=== PATIENT | female | born 1960 ===

== ENCOUNTER 2016-10-21 16:49 | Emergency (ER) | payer OTHER ==
[2016-10-21 16:57] VITALS: O2SAT 96
[2016-10-21] MEDS ORDERED: Albuterol-Ipratrop 3 mg / 0.5 (3 ml) UD ONE ×2 (17:00→17:29)
[2016-10-21] MEDS ORDERED: Albuterol-Ipratrop 3 mg / 0.5 (3 ml) UD INH STA ×3 (17:09→17:10)
--- NOTE | 2016-10-21 17:15 | C.PDOC ---
History Of Present Illness 56 y/o female with Hx of Asthma presents to ED with complaints of sob, mild cough and wheezing for 1 week. Patient reports increased use of nebulizer. Patient states she has never been hospitalized or intubated for similar symptoms before. No other complaints at this time. Time Seen by Provider: 10/21/16 16:59 Chief Complaint (Nursing): Shortness Of Breath History Per: Patient History/Exam Limitations: no limitations Onset/Duration Of Symptoms: Days Current Symptoms Are (Timing): Still Present Initiating Event: Upper Respiratory Illness Past Medical History Reviewed: Historical Data, Nursing Documentation, Vital Signs Vital Signs: Last Vital Signs Temp 97.8 F 10/21/16 18:45 Pulse 98 H 10/21/16 18:45 Resp 18 10/21/16 18:45 BP 108/69 10/21/16 18:45 Pulse Ox 96 10/21/16 18:45 - Medical History PMH: Asthma Surgical History: No Surg Hx Family History: States: No Known Family Hx - Social History Hx Alcohol Use: No Hx Substance Use: No - Immunization History Hx Tetanus Toxoid Vaccination: No Hx Influenza Vaccination: No Hx Pneumococcal Vaccination: No Review Of Systems Except As Marked, All Systems Reviewed And Found Negative. Respiratory: Positive for: Cough, Shortness of Breath Physical Exam - Physical Exam Appears: Non-toxic, No Acute Distress Skin: Normal Color, Warm, Dry, No Rash Head: Atraumatic, Normacephalic Eye(s): bilateral: Normal Inspection Oral Mucosa: Moist Throat: Normal, No Erythema Neck: Normal ROM, Supple Chest: Symmetrical Cardiovascular: Rhythm Regular, No Murmur Respiratory: No Rales, No Rhonchi, Wheezing (Bilateral) Gastrointestinal/Abdominal: Soft, No Tenderness, No Guarding, No Rebound Neurological/Psych: Oriented x3, Normal Speech ED Course And Treatment O2 Sat by Pulse Oximetry: 96 (RA) Pulse Ox Interpretation: Normal Medical Decision Making Medical Decision Making: asthma exacerbation - mild. pt speaking full sentences, no increased wob. mild wheezing b/l . no accessory muscle use- cxr, nebs steriods reassess 5.30: pt reasseseD: wheezing improved, cxr neg. willcontinue to reassess 615: pt reasseseD: pt reports symptoms improving. wheezing nearly resolved. minimal scattered 630: pt reassesed: wheezing resolved, peak flow improving. requested pt to be futher obs in er, declines, states she wishes to go home right now. return precations advised. Disposition - Disposition Referrals: [facility] [Outside] [facility] [Outside] [facility] [Outside] Disposition: HOME/ ROUTINE Disposition Time: 07:00 Condition: STABLE Additional Instructions: please follow up with your doctor. return to er with worsening symptoms or concerns Prescriptions: Albuterol 0.083% [Albuterol 0.083% Inhal Delilah (2.5 mg/3 ml) UD] 2.5 mg IH Q4 PRN #20 neb PRN Reason: Wheezing Prednisone 50 mg PO DAILY #5 tablet Instructions: Asthma (ED) Forms: [employer] (Latvian) - Clinical Impression Clinical Impression: Asthma - PA / [employer] / Resident Statement MD/DO has examined the patient and agrees with the treatment plan. - Scribe Statement The provider has reviewed the documentation as recorded by the Scribe Raul Blanco All medical record entries made by the Scribe were at my direction and personally dictated by me. I have reviewed the chart and agree that the record accurately reflects my personal performance of the history, physical exam, medical decision making, and the department course for this patient. I have also personally directed, reviewed, and agree with the discharge instructions and disposition.
--- NOTE | 2016-10-21 17:23 | RAD ---
HISTORY: cough COMPARISON: None available. TECHNIQUE: Chest PA and lateral FINDINGS: Examination limited by habitus. LUNGS: No focal consolidation. Please note that chest x-ray has limited sensitivity for the detection of pulmonary masses. PLEURA: No significant pleural effusion identified. No definite pneumothorax . CARDIOVASCULAR: The cardiomediastinal silhouette appears within normal limits of size. OSSEOUS STRUCTURES: No acute osseous abnormality identified. VISUALIZED UPPER ABDOMEN: Mild elevation of the right hemidiaphragm. OTHER FINDINGS: None. IMPRESSION: No focal consolidation, significant pleural effusion, or definite pneumothorax identified.
[2016-10-21 17:38] VITALS: RESP 18
[2016-10-21 18:46] VITALS: BP 108/69; PULSE 98; TEMP 97.8
== END 2016-10-21 18:45 | disposition home or self-care (01) ==
LOC: C.ER 16:49
DX: J45.909 Unspecified asthma, uncomplicated (principal)

== ENCOUNTER 2018-06-15 10:18 | Outpatient (CLI) | payer OTHER | END 2018-06-15 10:19 | disposition home or self-care (01) | LOC: C.MAMMO 10:18 | DX: Z12.39 Encounter for other screening for malignant neoplasm of breast (principal) ==